=== PATIENT | male | born 1975 | race American Indian/Alaskan Native ===

== ENCOUNTER 2017-02-19 11:10 | Emergency (ER) | payer BC ==
[2017-02-19 11:19] VITALS: BP 120/99
--- NOTE | 2017-02-19 12:32 | Emergency Department Report ---
Upper Extremity - HPI Chief Complaint: Shoulder Injury Stated Complaint: LT SHOULDER PAIN Time Seen by Provider: 02/19/17 12:31 Upper Extremity: Left Shoulder (pain and limited range of motion which is chronic) Occurred When: >5 Days (patient reports that it is been ongoing for a long time) Mechanism: Unsure (reports that he thinks he has a rotator cuff injury. Eyes any new trauma to shoulder.) Severity: moderate (5 out of 10) Symptoms: Yes Pain with Movement (shoulder,LT), Yes Limited Range of Movement ( left shoulder), No Deformity, No Numbness, No Weakness, No Swelling, No Bruising /Ecchymosis, No Laceration or Abrasion Other History: Patient has a history of chronic left shoulder pain and he said he's been having increasing painover the last few days. Denies any recent injury describes pain as aching and stiffness 5 out of 10. He took over-the- counter pain medication but it didn't help. ED Review of Systems ROS: Stated complaint: LT SHOULDER PAIN Other details as noted in HPI Comment: All other systems reviewed and negative Constitutional: denies: chills, fever Eyes: denies: vision change ENT: denies: epistaxis Respiratory: no symptoms reported Cardiovascular: denies: chest pain, palpitations, edema, syncope Gastrointestinal: denies: abdominal pain, nausea, vomiting, diarrhea Musculoskeletal: back pain, arthralgia. denies: joint swelling, myalgia Skin: denies: rash Neurological: denies: headache, weakness, numbness, paresthesias, confusion, abnormal gait ED Past Medical Hx - Past Medical History Previous Medical History?: No - Surgical History Past Surgical History?: No - Family History Family history: hypertension - Social History Smoking Status: Current Every Day Smoker Substance Use Type: None - Medications Home Medications: Home Medications Medication Instructions Recorded Confirmed Last Taken Type Ondansetron [Zofran] 4 mg PO Q6HR PRN #20 tablet 11/05/13 Unknown Rx traMADol [Ultram] 50 mg PO Q6HR PRN #20 tablet 02/19/17 Unknown Rx Upper Extremity Exam - Exam General: Vital signs noted. No distress. Alert and acting appropriately. Head and Torso: No HEENT Abnormality (normal exam), No Neck Tenderness (no C- spine tenderness, full range of motion and supple), No Chest/Lungs Abnormality ( to auscultate bilaterally, no rhonchi wheezes or rales.), No Abdominal Tenderness (soft, nontender to palpate positive bowel sounds in all quadrants), No Back Tenderness (vertebral spine or paraspinal tenderness.full range of motion) Shoulder Exam: Yes Shoulder Tenderness (and palpate to left glenohumeral joint) , Yes Normal Range of Motion in Shoulder (. Range of motion to left shoulder due to pain.), No Clavicle Tenderness, No Shoulder Deformity, No AC Joint Tenderness Arm Exam: No Arm/Humerus Tenderness, No Arm Deformity Elbow: Yes Normal Range of Motion in Elbow, No Elbow Tenderness, No Elbow Deformity Forearm: No Forearm Tenderness, No Forearm Deformity, No Pain with Pronation, No Pain with Supination Wrist: Yes Normal ROM in Wrist, No Wrist Tenderness, No Wrist Deformity, No Snuffbox Tenderness, No Pain with Axial Thumb Compression Hand: Yes Normal ROM in Digit(s), No Hand Tenderness, No Hand Deformity, No Digit Tenderness, No Digit(s) Deformity, No Tendon Dysfunction CMS Exam: Yes Normal Distal Pulses, Yes Normal Capillary Refill, Yes Normal Distal Sensation, No Broken Skin ED Course Vital Signs 02/19/17 11:16 Temperature 97.9 F Pulse Rate 66 Respiratory 16 Rate Blood Pressure 120/99 O2 Sat by Pulse 100 Oximetry - Reevaluation(s) Reevaluation #1: 02/19/17 13:56 Was given Toradol 60 mg IM and Decadron 10 mg IM and emergency room. ED Medical Decision Making - Medical Decision Making ED Course: Patient with acute exacerbation of chronic left shoulder pain. Discussed with him that he will need to follow-up with orthopedic doctor for MRI to look at his rotator cuff. He has no need for x-ray of the patient was due to chronicity and no recent injury. Given Decadron 8 mg in emergency room along with Toradol 60 mg IM. Patient was understanding of diagnosis and treatment plan and discharged home with prescription for Ultram. Critical care attestation.: If time is entered above; I have spent that time in minutes in the direct care of this critically ill patient, excluding procedure time. ED Disposition Clinical Impression: Arthralgia of left shoulder region Disposition: DISCHARGED TO HOME OR SELFCARE Is pt being admited?: No Does the pt Need Aspirin: No Condition: Stable Instructions: Arthralgia (ED) Additional Instructions: follow-up with orthopedic doctor as recommended Take Ultram as prescribed Prescriptions: traMADol [Ultram] 50 mg PO Q6HR PRN #20 tablet PRN Reason: Pain Referrals: ARTURO YORK MD [Staff Physician] - 3-5 Days [facility] [Outside] - 3-5 Days Forms: Work/School Release Form(ED)
[2017-02-19] MEDS ORDERED: TORADOL IM ONE (13:21)
[2017-02-19] MEDS ORDERED: DECADRON IM STA (13:21)
== END 2017-02-19 14:09 | disposition home or self-care (01) ==
LOC: ED 11:10
DX: M25.512 Pain in left shoulder (principal); F17.200 Nicotine dependence, unspecified, uncomplicated
CPT/HCPCS: 96372; 99282; J1100; J1885